=== PATIENT | female | born 1965 | race Caucasian/White ===

== ENCOUNTER 2023-10-12 13:08 | Outpatient (CLI) | payer MEDICAID, SELFPAY ==
--- NOTE | 2023-10-12 13:00 | RT.EKG_ITS ---
APPROVED REPORT Exam: Resting ECG Reason for Exam: Pre-Op exam Patient Location: O HR:84 bpm ECG Measurements Heart Rate 84 AXIS MN 176 P 5 QRSd 99 QRS 37 QT 381 T 40 QTc 451 Conclusion Sinus rhythm...normal P axis, V-rate 50- 99 early transition...QRS area>0 in V2 Otherwise normal ECG
== END 2023-10-12 13:09 | disposition home or self-care (01) ==
LOC: DI.KIM 13:09
PROVIDERS: PCP Family Medicine; Visit Provider Family Medicine
DX: Z01.818 Encounter for other preprocedural examination (principal); E03.8 Other specified hypothyroidism; E06.3 Autoimmune thyroiditis
CPT/HCPCS: 93010

== ENCOUNTER 2023-10-25 04:36 | Outpatient (CLI) | payer MEDICAID, SELFPAY ==
[2023-10-25 08:38] LABS: Abs Immature Grans 0.01 10^3/uL (0.0-0.06); Absolute Basophil Count 0.03 10^3/uL (0.0-0.2); Absolute Eosinophil Count 0.11 10^3/uL (0.0-0.7); Absolute Lymphocyte Count 2.76 10^3/uL (1.2-3.4); Absolute Monocyte Count 0.43 10^3/uL (0.1-0.8); Absolute Neutrophil Count 2.17 10^3/uL (1.2-6.7); Basophils % 0.5 %; HCT 34.7 % (36.0-46.0); HGB 10.6 g/dL (11.2-15.7); Immature Grans % 0.2 %; Lymphocytes % 50.1 %; MCH 24.8 pg (27.0-33.0); MCHC 30.5 % (32.0-36.0); MCV 81 fL (80-95); MPV 10.1 fL (8.0-11.0); Monocytes % 7.8 %; Neutrophils % 39.4 %; Platelet Count 235 10^3/uL (130-400); RBC 4.27 10^6/uL (3.93-5.22); RDW 15.8 % (11.7-14.6); RDW-SD 46.9 fL; WBC 5.51 10^3/uL (4.4-10.8)
[2023-10-25 08:49] LABS: PTT Activated 23.1 sec (23.6-32.8); Prothrombin Time 9.7 sec (9.1-11.1)
[2023-10-25 10:13] LABS: ALT 14 U/L (14-59); AST 12 U/L (15-37); Albumin 3.8 g/dL (3.4-5.0); Alkaline Phosphatase 79 U/L (46-116); Anion Gap 7.3 mmol/L (3-11); BUN 8 mg/dL (7-18); Bilirubin, Total 0.29 mg/dL (0.2-1.0); CO2 27.7 mmol/L (21.0-32.0); CREATININE 0.9 mg/dL (0.55-1.02); Chloride 112 mmol/L (98-107); Estimated GFR 75.03 (mL/min/1.73m2); Glucose 82 mg/dL (74-106); Potassium 4.2 mmol/L (3.5-5.1); Sodium 147 mmol/L (136-145); TSH (W/Ref FT4) 0.16 uIU/mL (0.36-3.74); Total Protein 7.3 g/dL (6.4-8.2)
== END 2023-10-25 04:37 | disposition home or self-care (01) ==
LOC: LBO 04:36
PROVIDERS: PCP Family Medicine; Visit Provider Family Medicine
DX: E03.8 Other specified hypothyroidism (principal); E06.3 Autoimmune thyroiditis; Z01.818 Encounter for other preprocedural examination; L03.811 Cellulitis of head [any part, except face]
CPT/HCPCS: 36415; 80053; 84439; 84443; 85025; 85610; 85730

== ENCOUNTER 2024-06-24 13:40 | Outpatient (CLI) | payer MEDICAID, SELFPAY ==
--- NOTE | 2024-06-24 13:30 | RT.EKG_ITS ---
APPROVED REPORT Exam: Resting ECG Reason for Exam: pre-op Patient Location: O HR:70 bpm ECG Measurements Heart Rate 70 AXIS SD 181 P -29 QRSd 108 QRS 21 QT 400 T 35 QTc 432 Conclusion Sinus rhythm...normal P axis, V-rate 50- 99 Normal Electrocardiogram
== END 2024-06-24 13:41 | disposition home or self-care (01) ==
LOC: DI.KIM 13:40
PROVIDERS: PCP Family Medicine; Visit Provider Nurse Practitioner
DX: Z01.818 Encounter for other preprocedural examination (principal)
CPT/HCPCS: 93010

== ENCOUNTER 2024-06-24 16:31 | Outpatient (CLI) | payer MEDICAID, SELFPAY ==
[2024-06-24 15:21] LABS: Bilirubin Negative (Negative); Blood Negative (Negative); Clarity Clear (Clear); Glucose Negative (Negative); Ketones Negative (Negative); Leukocyte Esterase Negative (Negative); Nitrite Negative (Negative); Urobilinogen 0.2 mg/dL (Up to 0.2)
[2024-06-24 15:27] LABS: ALT 17 U/L (14-59); Albumin 3.8 g/dL (3.4-5.0); Alkaline Phosphatase 87 U/L (46-116); BUN 15 mg/dL (7-18); Bilirubin, Total 0.3 mg/dL (0.2-1.0); Calcium 8.9 mg/dL (8.5-10.1); Chloride 104 mmol/L (98-107); Estimated GFR 65.71 (mL/min/1.73m2); Glucose 93 mg/dL (74-106); Potassium 4.1 mmol/L (3.5-5.1); Sodium 140 mmol/L (136-145); Total Protein 7.2 g/dL (6.4-8.2)
[2024-06-24 15:36] LABS: AST 13 U/L (15-37)
== END 2024-06-24 16:32 | disposition home or self-care (01) ==
LOC: LBO 16:31
PROVIDERS: PCP Family Medicine; Visit Provider Nurse Practitioner
DX: Z01.818 Encounter for other preprocedural examination (principal)
CPT/HCPCS: 36415; 80053; 81003; 85730

== ENCOUNTER 2024-09-11 16:13 | Outpatient (CLI) | payer MEDICAID, SELFPAY ==
[2024-09-11 16:15] LABS: HCT 33.8 % (36.0-46.0); HGB 10.2 g/dL (11.2-15.7); MCHC 30.2 % (32.0-36.0); MCV 80 fL (80-95); MPV 9.6 fL (8.0-11.0); Platelet Count 241 10^3/uL (130-400); RBC 4.25 10^6/uL (3.93-5.22); RDW 18.5 % (11.7-14.6); RDW-SD 53.5 fL; WBC 6.33 10^3/uL (4.4-10.8)
[2024-09-11 17:38] LABS: Iron 44 ug/dL (50-170)
[2024-09-11 17:46] LABS: TSH (W/Ref FT4) 2.41 uIU/mL (0.36-3.74)
== END 2024-09-11 16:14 | disposition home or self-care (01) ==
LOC: LBO 16:25
PROVIDERS: PCP Family Medicine; Visit Provider Family Medicine
DX: D51.0 Vitamin B12 deficiency anemia due to intrinsic factor deficiency (principal); E03.8 Other specified hypothyroidism; E06.3 Autoimmune thyroiditis
CPT/HCPCS: 36415; 85027; 83540; 84443